=== PATIENT | female | born 1985 | race Two or more races ===

== ENCOUNTER 2019-02-06 14:21 | Emergency (ER) | payer SELFPAY ==
[~2019-02-06] VITALS: Ht 154.9 cm; Wt 133.8 kg
[2019-02-06 14:40] VITALS: BP 158/104
--- NOTE | 2019-02-06 15:33 | RAD ---
LUMBAR SPINE 2-3V, HIP RIGHT 2V WITH PELVIS History: Pain. No injury. Three-view lumbar spine Vertebral body height is maintained as is alignment. There is mild degenerative change with mild loss of height and marginal spurring more so at L3-L4. Bowel gas pattern does not appear obstructive. IMPRESSION: Mild degenerative spondylosis AP pelvis with two-view right hip Bone detail is very suboptimal due to body habitus. No evidence of an acute displaced fracture. Joint spaces are intact. No evidence of aggressive bone destruction. IMPRESSION: Exam limited by body habitus. No definite acute fracture or dislocation. Electronically signed by: Yousuf Herrera MD (02/06/2019 3:31 PM) [id number]
[2019-02-06] MEDS ORDERED: NAPR500T8 PO (16:02)
[2019-02-06] MEDS ORDERED: CYCL10TA2 PO (16:02)
--- NOTE | 2019-02-06 16:02 | PHYS DOC ---
Past Medical History Past Medical History: No Pertinent History Past Surgical History: No Surgical History Alcohol Use: None Drug Use: None Adult General Chief Complaint Chief Complaint: LOWER EXT PAIN HPI HPI Patient is a 33 year old female with no significant medical history presents to the ED today complaining of 7 out of 10 right lateral thigh pain radiating to the right lower extremity symptoms of 5 weeks, patient denies any known injury. Describes the pain as burning and intermittent worse on weight bearing. Denies anything relieving the pain. Denies any injury. Denies any loss of bowel bladder function. Review of Systems Review of Systems Constitutional: Denies fever or chills [] GI: Denies abdominal pain, nausea, vomiting, bloody stools or diarrhea [] : Denies dysuria or hematuria [] Musculoskeletal: Reports right thigh pain. Integument: Denies rash or skin lesions [] Neurologic: Denies headache, focal weakness or sensory changes [] All other systems were reviewed and found to be within normal limits, except as documented in this note. Allergies Allergies Allergies Coded Allergies Type Severity Reaction Last Updated Verified No Known Drug Allergies 02/06/19 No Physical Exam Physical Exam Constitutional: Well developed, well nourished, no acute distress, non-toxic appearance. []] Skin: Warm, dry, no erythema, no rash. [] Back: No tenderness, no CVA tenderness. [] Extremities: Obese patient with most of the weight on the thighs. No tenderness, no cyanosis, no clubbing, ROM intact, no edema. [] Neurologic: Alert and oriented X 3, normal motor function, normal sensory function, no focal deficits noted. [] Psychologic: Affect normal, judgement normal, mood normal. [] Current Patient Data Vital Signs Vital Signs Date Time Temp Pulse Resp B/P (MAP) Pulse Ox O2 Delivery O2 Flow Rate FiO2 02/06/19 14:40 98.5 79 18 158/104 (122) 98 Room Air 98.5 EKG EKG [] Radiology/Procedures Radiology/Procedures []PROCEDURE: LUMBAR SPINE 2-3V LUMBAR SPINE 2-3V, HIP RIGHT 2V WITH PELVIS History: Pain. No injury. Three-view lumbar spine Vertebral body height is maintained as is alignment. There is mild degenerative change with mild loss of height and marginal spurring more so at L3-L4. Bowel gas pattern does not appear obstructive. IMPRESSION: Mild degenerative spondylosis AP pelvis with two-view right hip Bone detail is very suboptimal due to body habitus. No evidence of an acute displaced fracture. Joint spaces are intact. No evidence of aggressive bone destruction. IMPRESSION: Exam limited by body habitus. No definite acute fracture or dislocation. Electronically signed by: Naeem Herrera MD (02/06/2019 3:31 PM) [id number] DICTATED and SIGNED BY: NAEEM HERRERA MD DATE: 02/06/19 153 Course & Med Decision Making Course & Med Decision Making Pertinent Labs and Imaging studies reviewed. (See chart for details) This is a 33-year-old female patient presented to the ED today with right thigh pain radiating to the right lower extremity for 5 weeks. No known injury. No cauda equina syndrome symptoms. Patient herself requested x-rays. X-rays of the lumbar spine, right hip with pelvic are negative for any acute findings noted for DJD. Patient was encouraged to consider weight loss. Diet and exercise recommended. Discharged with cyclobenzaprine and naproxen. Follow-up with PCP in one week. Interpretation was provided by patient's family for [place] Citizen. You were evaluated in the emergency room Dragon Disclaimer Dragon Disclaimer This electronic medical record was generated, in whole or in part, using a voice recognition dictation system. Departure Departure Impression: Primary Impression: Sciatica, right side Additional Impression: DJD (degenerative joint disease), lumbar Disposition: 01 HOME, SELF-CARE Condition: STABLE Referrals: NO PCP (PCP) follow up with your doctor in 1-2 weeks Patient Instructions: Arthritis, Degenerative-Brief, Sciatica Additional Instructions: You were evaluated in the emergency room, your x-rays were noted for arthritis. Your pain could be from the arthritis as well as some sciatica. Consider weight loss. Try to diet and exercise take the prescribed medications as needed for pain. Follow-up with your own doctor in 1-2 weeks. Scripts Cyclobenzaprine Hcl (CYCLOBENZAPRINE HCL) 10 Mg Tablet 1 TAB PO TID, #30 TAB Prov: SEDRICK KIM APRN 02/06/19 Naproxen (NAPROXEN) 500 Mg Tablet. 1 TAB PO BID, #20 TAB 0 Refills Prov: SEDRICK KIM APRN 02/06/19 Problem Qualifiers Additional Impression: DJD (degenerative joint disease), lumbar Spinal osteoarthritis complication: unspecified spinal osteoarthritis Qualified Codes: M47.816 - Spondylosis without myelopathy or radiculopathy, lumbar region SEDRICK KIM APRN Feb 06, 2019 16:02
== END 2019-02-06 16:18 | disposition home or self-care (01) ==
LOC: ER 14:21
DX: M47.816 Spondylosis without myelopathy or radiculopathy, lumbar region (principal); M79.651 Pain in right thigh; E66.9 Obesity, unspecified
CPT/HCPCS: 72100; 73502; 99284